=== PATIENT | male | born 1995 | race Caucasian/White ===

== ENCOUNTER 2021-01-01 15:25 | Emergency (ER) | payer OTHER ==
[2021-01-01 16:15] LABS: HEMOGLOBIN 16.1 gm/dl (14.0-17.5); RED BLOOD COUNT 5.21 M/UL (4.20-5.50); WHITE BLOOD COUNT 7.3 K/UL (4.5-11.0)
[2021-01-01 16:33] LABS: BUN/CREATININE RATIO 16 (0-10)
== END 2021-01-01 21:21 | disposition home or self-care (01) ==
LOC: ER1 15:25
PROVIDERS: Family Medicine
DX: R56.9 Unspecified convulsions (principal); F12.90 Cannabis use, unspecified, uncomplicated
CPT/HCPCS: 70450; 80053; 80307; 81001; 85025; 99284; J2405